=== PATIENT | female | born 2000 | race Caucasian/White ===

== ENCOUNTER → 2023-02-22 16:31 | Outpatient (CLI) | payer OTHER, SELFPAY | PROVIDERS: Visit Provider Physician Assistant | DX: J02.9 Acute pharyngitis, unspecified (principal) | CPT/HCPCS: 87070 ==

== ENCOUNTER → 2023-09-28 16:19 | Outpatient (CLI) | payer OTHER, SELFPAY | PROVIDERS: Visit Provider Nurse Practitioner Family | DX: J02.9 Acute pharyngitis, unspecified (principal) | CPT/HCPCS: 87070 ==

== ENCOUNTER 2024-07-15 09:36 | Emergency (ER) | payer BC, SELFPAY ==
[2024-07-15] VITALS (8 sets, daily range): BP systolic 101–128; BP diastolic 58–67; PULSE 67–86; RESP 18; TEMP 36.8; O2SAT 97–100
--- NOTE | 2024-07-15 09:40 | ED.ABDPAIN ---
HPI - Abdominal Pain General Chief Complaint: Abdominal Pain Stated Complaint: Abd farias and vomiting from [facility] Time Seen by Provider: 07/15/24 09:40 History of Present Illness HPI narrative: Patient is a 23-year-old with significant past medical history presents to the emergency department from walk-in clinic for evaluation of abdominal pain and vomiting. States that this started this morning, 2 episodes of nonbilious nonbloody emesis, states that the pain is crampy in nature, it is better now but went to urgent Care to be evaluated, states that she was sent directly here due to abdominal pain. Denies any recent travel no known sick contacts had a normal bowel movement. Related Data Home Medications Medication Instructions Recorded Confirmed lidocaine HCl 2 % mucosal solution 10 ml PO Q3H PRN pain 09/28/23 09/28/23 (Lidocaine Viscous) Allergies Allergy/AdvReac Type Severity Reaction Status Date / Time No Known Drug Allergies Allergy Unverified 09/28/23 16:03 Review of Systems Review of Systems Narrative: General: Denies fever, chills, weight loss HEENT: Denies headache, eye drainage, eye irritation, head trauma, sore throat, voice change Cardiovascular: Denies any chest pain, palpitations, shortness of breath, tachycardia Respiratory: Denies any shortness of breath, cough, wheeze, stridor GI/: Positive for abdominal pain, nausea, vomiting denies diarrhea, bright red blood per rectum, melanotic stools, urinary frequency, urinary retention, dysuria, hematuria MSK: Denies any joint pain, muscle pains, swelling Skin: Denies any rashes, lesions, discoloration Neuro: Denies any headache, lightheadedness, dizziness, fainting, weakness Psych: Denies SI/HI Patient History Social History Smoking Status: Never smoker Smoking Status: Never smoker Exam Narrative Exam Narrative: General: Cooperative, comfortable, well-developed, not in acute distress HEENT: Normocephalic, atraumatic, PERRLA, normal sclera, eyelids normal, Neck: Active full range of motion, atraumatic Chest: Normal to inspection, negative crepitus, no overlying erythema ecchymosis Respiratory: Normal respiratory effort, not in acute respiratory distress, clear to auscultation bilaterally negative cough, wheeze, tachypnea, rhonchi, rales Cardiology: Regular rate rhythm negative gallop, murmur, rubs GI/: Normal to inspection, soft, nonrigid, no tenderness to palpation, exam deferred MSK: Full range of active range of motion of all 4 extremities, atraumatic Skin: No rashes lesions noted Neuro: Alert awake oriented x3, moves all 4 extremities spontaneously, cranial nerves intact, able to answer all questions appropriately follows commands appropriately Psych: Cooperative, negative suicidal or homicidal ideations Initial Vital Signs Initial Vital Signs: Vital Signs Temperature 98.3 F 07/15/24 09:44 Pulse Rate 86 07/15/24 09:44 Respiratory Rate 18 07/15/24 09:44 Blood Pressure 128/59 L 07/15/24 09:44 Pulse Oximetry 100 07/15/24 09:44 Oxygen Delivery Method Room Air 07/15/24 09:44 Course Orders Ordered: ED Orders 07/15/24 09:56 CT abdomen pelvis w con Stat 07/15/24 10:08 Complete Blood Count AUTO DIFF Stat Comprehensive Metabolic Panel Stat Lipase Stat 07/15/24 10:54 Urine Microscopic Stat Discontinued Medications Ondansetron HCl (Ondansetron 4 Mg/2 Ml Inj) 4 mg IV NOW ONE Stop: 07/15/24 09:43 Vital Signs Vital signs: Vital Signs - 8 hr 07/15/24 09:44 Temperature 98.3 F Pulse Rate 86 Respiratory Rate 18 Blood Pressure 128/59 L Pulse Oximetry 100 Oxygen Delivery Method Room Air MDM - Abdominal Pain Differential Diagnosis Differential diagnosis: Likely abdominal pain, acute appendicitis, constipation, diverticulitis and other (Electrolyte abnormality, urinary tract infection) Lab Data Attestation: I reviewed the patient's lab results. 07/15/24 10:08 07/15/24 10:08 Labs: Lab Results 07/15/24 Range/Units 10:08 WBC 7.6 (4.5-11.0) X10^3/uL RBC 4.39 (4.0-5.2) X10^6/uL Hgb 13.5 (12.0-16.0) g/dL Hct 39.5 (36-46) % MCV 89.9 (80-100) fL MCH 30.8 (26-34) PG MCHC 34.3 (30-36) % RDW 12.5 (11.6-14.8) % Plt Count 226 (150-400) X10^3/uL Neut % (Auto) 78.2 H (50-75) % Lymph % (Auto) 12.0 L (25-40) % [place] % (Auto) 8.3 (3-14) % Eos % (Auto) 0.9 L (2-4) % Baso % (Auto) 0.6 (0-2) % Neut # (Auto) 6000 (7255-4793) /uL Lymph # (Auto) 900 L (1549-2197) /uL [place] # (Auto) 600 (0-900) /uL Eos # (Auto) 100 (0-450) /uL Baso # (Auto) 0 (0-100) /uL Sodium 137 (137-145) mmol/L Potassium 3.6 (3.4-5.1) mmol/L Chloride 109 H (98-107) mmol/L Carbon Dioxide 24 (22-32) mmol/L BUN 12 (7-17) mg/dL Creatinine 0.64 (0.52-1.04) mg/dL Estimated GFR > 60 (>60) mL/min BUN/Creatinine Ratio 18.8 (6-22) Glucose 84 (70-100) mg/dL Calcium 8.9 (8.4-10.2) mg/dL Total Bilirubin 0.9 (0.2-1.3) mg/dL AST 24 (14-36) IU/L ALT 14 (<35) IU/L Alkaline Phosphatase 55 (38-126) U/L Total Protein 6.8 (6.3-8.2) g/dL Albumin 3.9 (3.5-5.0) g/dL Globulin 2.9 (1.7-4.1) g/dL Albumin/Globulin Ratio 1.3 (1.0-2.8) Lipase 63 (23-300) U/L Point of care testing: Point of Care Testing Test Results Negative Urine Dip Bedside Urine Glucose Negative Bedside Urine Bilirubin - Negative Bedside Urine Ketone - Negative Urine Specific [place] 1.005 Bedside Urine Occult Blood +++ Bedside Urine pH 6.0 Bedside Urine Protein - Negative Bedside Urine Urobilinogen - Negative Bedside Urine Nitrite - Negative Bedside Urine Leukocytes - Negative Esterase Imaging Data CT scan - abdomen/pelvis: Radiologist's Impression: [address] [address] [address] Scan Report Signed Patient: Gema Wood MR#: [id number] : 2000 Acct:[id number] Age/Sex: 23 / F Date of Service: 07/15/24 Loc: ED Accession Number: [id number] Procedure: CT abdomen pelvis w con Ordering Provider: Garret Valle D.O. PROCEDURE: CT ABDOMEN PELVIS W CON INDICATIONS: lower abd pain TECHNIQUE: After the administration of intravenous contrast, axial sections acquired from the lung bases to the pubic symphysis. Coronal and sagittal reformats were performed. For radiation dose reduction, the following was used: automated exposure control, adjustment of mA and/or kV according to patient size. COMPARISON: None. FINDINGS: Image quality: Diagnostic. Lower Chest: No significant findings. ABDOMEN: Liver: No solid mass. Gallbladder: No radiopaque gallstones or wall thickening. Biliary ducts: No biliary dilation. Pancreas: No ductal dilation. Spleen: Size is within normal limits. Adrenal Glands: No adrenal nodules. Kidneys and Ureters: No hydronephrosis. No solid mass. No complex renal cystic lesion which requires follow up. Stomach and Bowel: The cecum is low lying, which limits evaluation of the appendix. No appendix (either normal or abnormal) is identified on this study. There is a moderate volume of stool seen within the colon. No significant colonic abnormality is seen. No dilated loops of small bowel are seen. Peritoneum: A small amount of free pelvic fluid can be seen within the pelvis. No free air. No peritoneal abscess is seen. Ventral Wall: No significant ventral hernia. Abdominal Nodes: No retroperitoneal or mesenteric adenopathy by size criteria. Vessels: Aorta and inferior vena cava are normal in size. PELVIS: Pelvic Organs: The uterus appears normal for age. No adnexal masses are seen. Tampon artifact is incidentally noted. Bladder: No bladder wall thickening, accounting for underdistention. Pelvic Nodes: No enlarged lymph nodes. Miscellaneous: No inguinal hernias are seen. Bones: No aggressive osseous abnormality. IMPRESSION: There is a moderate amount of stool seen within the colon. Please correlate with an underlying history of constipation. No appendix (either normal or abnormal) is identified on this study. A small amount of free fluid can be seen within the pelvis, which is considered to be within physiologic limits. MDM Narrative Medical decision making narrative: Patient is a 23 significant past medical history presents to the emergency department for abdominal pain, nausea and vomiting ongoing persistent since today, did improve after 2 3 episodes of nonbilious nonbloody emesis. Was initially seen at urgent Care was sent to the emergency department for further evaluation and treatment. Lab work unremarkable, urine without any signs of acute urinary tract infection. Patient without significant tenderness to palpation of the right lower quadrant very low suspicion of appendicitis at this time. CT scan did show small amount of free fluid within the pelvis more likely secondary to ovarian rupture, she states that she just started her period today. CT scan noted Also significant amount of stool noted. Patient states that she would prefer to buy [id number] MiraLax. Informed her to increase her dietary fiber and fluid intake. Strict return precautions were given patient will be safe for discharge home with outpatient follow up Discharge Plan Departure Patient Disposition: Home Clinical Impression: Abdominal pain Activity Restrictions/Additional Instructions: Please read the discharge instructions sheet carefully and bring all papers to all doctor follow-up visits, as it may contain information that your doctor may want to see. Disease processes change and evolve, if your symptoms worsen or if you develop any new symptoms that are concerning to you please return for evaluation. Your evaluation today does not show any evidence of any life-threatening/serious illnesses requiring admission to the hospital or surgery. Please follow-up with your doctor for re-evaluation in approximately 1 day. Seek immediate medical attention for any worrisome symptoms. Prescriptions: No Action lidocaine HCl [Lidocaine Viscous] 2 % solution 10 ml PO Q3H PRN (Reason: pain) Referrals: Miscellaneous,[facility] [Primary Care Provider] - Stand Alone Forms: Patient Portal/API
--- NOTE | 2024-07-15 09:56 | DI.CT.S_ITS ---
PROCEDURE: CT ABDOMEN PELVIS W CON INDICATIONS: lower abd pain TECHNIQUE: After the administration of intravenous contrast, axial sections acquired from the lung bases to the pubic symphysis. Coronal and sagittal reformats were performed. For radiation dose reduction, the following was used: automated exposure control, adjustment of mA and/or kV according to patient size. COMPARISON: None. FINDINGS: Image quality: Diagnostic. Lower Chest: No significant findings. ABDOMEN: Liver: No solid mass. Gallbladder: No radiopaque gallstones or wall thickening. Biliary ducts: No biliary dilation. Pancreas: No ductal dilation. Spleen: Size is within normal limits. Adrenal Glands: No adrenal nodules. Kidneys and Ureters: No hydronephrosis. No solid mass. No complex renal cystic lesion which requires follow up. Stomach and Bowel: The cecum is low lying, which limits evaluation of the appendix. No appendix (either normal or abnormal) is identified on this study. There is a moderate volume of stool seen within the colon. No significant colonic abnormality is seen. No dilated loops of small bowel are seen. Peritoneum: A small amount of free pelvic fluid can be seen within the pelvis. No free air. No peritoneal abscess is seen. Ventral Wall: No significant ventral hernia. Abdominal Nodes: No retroperitoneal or mesenteric adenopathy by size criteria. Vessels: Aorta and inferior vena cava are normal in size. PELVIS: Pelvic Organs: The uterus appears normal for age. No adnexal masses are seen. Tampon artifact is incidentally noted. Bladder: No bladder wall thickening, accounting for underdistention. Pelvic Nodes: No enlarged lymph nodes. Miscellaneous: No inguinal hernias are seen. Bones: No aggressive osseous abnormality. IMPRESSION: There is a moderate amount of stool seen within the colon. Please correlate with an underlying history of constipation. No appendix (either normal or abnormal) is identified on this study. A small amount of free fluid can be seen within the pelvis, which is considered to be within physiologic limits. Dictated by: Harris Cunha M.D. on 07/15/2024 at 9:35 Approved by: Harris Cunha M.D. on 07/15/2024 at 9:39
[2024-07-15 10:16] LABS: Add Manual Diff / Slide Review NO; Basophils Absolute Auto 0 /uL (0-100); Basophils Percent Auto 0.6 % (0-2); Eosinophils Absolute Auto 100 /uL (0-450); Eosinophils Percent Auto 0.9 % (2-4); Hematocrit 39.5 % (36-46); Hemoglobin 13.5 g/dL (12.0-16.0); Lymphocytes Absolute Auto 900 /uL (1100-4500); Mean Corpuscular HGB Conc 34.3 % (30-36); Mean Corpuscular Hemoglobin 30.8 PG (26-34); Mean Corpuscular Volume 89.9 fL (80-100); Monocytes Absolute Auto 600 /uL (0-900); Monocytes Percent Auto 8.3 % (3-14); Neutrophils Absolute Auto 6000 /uL (1500-7000); Neutrophils Percent Auto 78.2 % (50-75); Platelet Count 226 X10^3/uL (150-400); Red Blood Cell Count 4.39 X10^6/uL (4.0-5.2); Red Cell Distribution Width 12.5 % (11.6-14.8); White Blood Cell Count 7.6 X10^3/uL (4.5-11.0)
[2024-07-15 10:27] LABS: Alanine Aminotransferase 14 IU/L (<35); Albumin 3.9 g/dL (3.5-5.0); Albumin Globulin Ratio 1.3 (1.0-2.8); Alkaline Phosphatase 55 U/L (38-126); Aspartate Aminotransferase 24 IU/L (14-36); BUN Creatinine Ratio 18.8 (6-22); Bilirubin Total 0.9 mg/dL (0.2-1.3); Blood Urea Nitrogen 12 mg/dL (7-17); Calcium 8.9 mg/dL (8.4-10.2); Carbon Dioxide 24 mmol/L (22-32); Chloride 109 mmol/L (98-107); Estimated Glomerular Filt Rate > 60 mL/min (>60); Globulin 2.9 g/dL (1.7-4.1); Glucose 84 mg/dL (70-100); HEMOLYSIS 19 (0-50); Lipase 63 U/L (23-300); Potassium 3.6 mmol/L (3.4-5.1); Sodium 137 mmol/L (137-145); Total Protein 6.8 g/dL (6.3-8.2)
[2024-07-15 11:26] LABS: Bacteria Urine None Seen; Culture Indicated Urine Cult Not Indicated; RBC Urine 0-1/HPF (0-5/HPF); Squamous Epithelial Cell Urine 5-10 /HPF (0-5/HPF); Urine Volume 10mL (spun); WBC Urine 0-1/HPF (0-5/HPF)
== END 2024-07-15 11:08 | disposition home or self-care (01) ==
PROVIDERS: Emergency Provider Student in an Organized Health Care Education/Training Program
DX: R10.9 Unspecified abdominal pain (principal); R11.10 Vomiting, unspecified
CPT/HCPCS: 36415; 74177; 80053; 81003; 81015; 81025; 83690; 85025; 99284; Q9967